=== PATIENT | female | born 1990 | race Two or more races ===

== ENCOUNTER 2023-02-19 10:30 | Observation (INO) | payer MEDICAID | END 2023-02-19 10:40 | disposition home or self-care (01) | LOC: 8 EST LDRP 10:30 | PROVIDERS: ADMIT Obstetrics & Gynecology; ATTEND Obstetrics & Gynecology | DX: O62.9 Abnormality of forces of labor, unspecified (principal); Z3A.39 39 weeks gestation of pregnancy | CPT/HCPCS: 59025; G0378 ==